=== PATIENT | female | born 1965 | race African-American/Black ===

== ENCOUNTER 2024-03-25 15:21 | Inpatient (IN) | payer MEDICARE, MEDICAID ==
[~2024-03-25] VITALS: Ht 167.6 cm; Wt 78.5 kg
[2024-03-25 16:44] LABS: BASOPHILS % 0.7 % (0.0-2.0); EOSINOPHILS % 2.7 % (0.0-5.0); HEMATOCRIT. 39.1 % (36.0-48.0); HEMOGLOBIN. 12.6 g/dL (12.0-16.0); LYMPHOCYTES % 36.4 % (20.0-50.0); MEAN CORPUSCULAR HEMOGLOBIN 26.2 pg (28.0-32.0); MEAN CORPUSCULAR HGB CONC 32.2 g/dL (31.0-37.0); MEAN CORPUSCULAR VOLUME 81.5 fL (81.0-99.0); MEAN PLATELET VOLUME 7.9 fl (7.4-10.4); MONOCYTES % 8.7 % (2.0-8.0); NEUTROPHILS % 51.5 % (40.0-76.0); PLATELET 262 x1000/uL (130-400); RED CELL DISTRIBUTION WIDTH 14.8 % (11.6-14.6); WHITE BLOOD COUNT 7.6 x1000/uL (4.5-11.0)
[2024-03-25 16:49] LABS: CHLORIDE 107 mEq/L (98-107); POTASSIUM 3.7 mEq/L (3.5-5.1); SODIUM 140 mEq/L (136-145)
[2024-03-25 16:50] LABS: CARBON DIOXIDE 27 mEq/L (21-32)
[2024-03-25] MEDS: MORPHINE SULFATE 4 MG/ML INJ (FOR IV/IM USE) IV ONE (16:53)
[2024-03-25] MEDS: NITROGLYCERIN OINT 1GM/INCH UDPKT TD ONE (16:53)
[2024-03-25] MEDS: METOCLOPRAMIDE HCL 10MG/2ML VIAL IV ONE (16:53)
[2024-03-25 16:55] LABS: CREATININE 1.1 mg/dL (0.6-1.0); GLUCOSE 148 mg/dL (70-105); UREA NITROGEN BLOOD 16 mg/dL (9-23)
[2024-03-25 16:56] LABS: TROPONIN I HIGH SENSITIVITY 5 ng/L (3.0-34)
[2024-03-25 16:57] LABS: INR 0.9
[2024-03-25] MEDS: HYDRALAZINE 20MG/ML VIAL IV ONE (18:58)
[2024-03-25 19:35] LABS: TROPONIN I HIGH SENSITIVITY 5 ng/L (3.0-34)
[2024-03-25 19:54] LABS: CLARITY URINE CLEAR (CLEAR); COLOR URINE YELLOW (YELLOW); GLUCOSE URINE NEGATIVE (NEGATIVE); KETONES URINE NEGATIVE (NEGATIVE); LEUKOCYTE ESTERASE URINE NEGATIVE (NEGATIVE); NITRITE URINE NEGATIVE (NEGATIVE); OCCULT BLOOD URINE NEGATIVE (NEGATIVE); PH URINE 6.5 (4.5-8.0); PROTEIN URINE 3+ (NEGATIVE); SPECIFIC GRAVITY URINE 1.012 (1.005-1.030)
[2024-03-25 20:03] LABS: BACTERIA URINE NONE SEEN; RBC URINE 0-2 /hpf (0-2); SQUAMOUS EPITHELIAL CELL URINE 2+ /lpf (RARE/1+); WBC URINE 0-2 /hpf (0-2)
[2024-03-25] MEDS ORDERED: NALOXONE HCL 0.4MG/ML VIAL IV PRN (21:30)
[2024-03-25 22:19] LABS: TROPONIN I HIGH SENSITIVITY 6 ng/L (3.0-34)
[2024-03-25] MEDS: MORPHINE SULFATE 2 MG/ML INJ (NOT FOR IM USE) IV PRN (22:20)
[2024-03-25] MEDS ORDERED: PRAV40TA58 PO (22:37)
[2024-03-25] MEDS ORDERED: GABA-1180 PO (22:38)
[2024-03-25] MEDS ORDERED: CLONIDINE 0.1MG TABLET PO PRN (23:15)
[2024-03-25] MEDS ORDERED: IPRATROPIUM/ALBUTEROL 0.5-3(2.5)MG/3ML NEB NEB PRN (23:15)
[2024-03-26] MEDS: ZOLPIDEM TARTRATE 5MG TABLET PO PRN (03:10)
[2024-03-26 08:25] LABS: CHLORIDE 108 mEq/L (98-107); SODIUM 140 mEq/L (136-145)
[2024-03-26 08:26] LABS: CALCIUM 9.9 mg/dL (8.7-10.4); CARBON DIOXIDE 24 mEq/L (21-32)
[2024-03-26 08:27] LABS: BASOPHILS % 0.8 % (0.0-2.0); EOSINOPHILS % 2.6 % (0.0-5.0); HEMATOCRIT. 39.2 % (36.0-48.0); HEMOGLOBIN. 12.3 g/dL (12.0-16.0); MEAN CORPUSCULAR HEMOGLOBIN 25.6 pg (28.0-32.0); MEAN CORPUSCULAR HGB CONC 31.3 g/dL (31.0-37.0); MEAN CORPUSCULAR VOLUME 81.8 fL (81.0-99.0); MEAN PLATELET VOLUME 8.7 fl (7.4-10.4); NEUTROPHILS % 56.6 % (40.0-76.0); PLATELET 254 x1000/uL (130-400); RED BLOOD CELL COUNT 4.79 mill/uL (4.2-5.4); RED CELL DISTRIBUTION WIDTH 14.6 % (11.6-14.6); WHITE BLOOD COUNT 7.3 x1000/uL (4.5-11.0)
[2024-03-26 08:31] LABS: CREATININE 0.9 mg/dL (0.6-1.0); GLUCOSE 159 mg/dL (70-105); TRIGLYCERIDE 162 mg/dL (0-150); UREA NITROGEN BLOOD 12 mg/dL (9-23)
[2024-03-26 08:32] LABS: CREATINE KINASE MB FRACTION 3.8 ng/mL (0.5-3.6); LDL CHOLESTEROL 81 mg/dL (5-100)
[2024-03-26 08:33] LABS: CHOLESTEROL 156 mg/dL (<200); HDL CHOLESTEROL 43 mg/dL (>65)
[2024-03-26] MEDS: ONDANSETRON HCL 4MG/2ML INJ IV PRN (08:40)
[2024-03-26 09:16] VITALS: BP 157/84; PULSE 74; RESP 19; TEMP 37.0296
[2024-03-26] MEDS: ACETAMINOPHEN 325MG TABLET PO PRN (09:54)
[2024-03-26] MEDS: ENOXAPARIN 40MG/0.4ML SYR SUBCUT SCH (09:55)
[2024-03-26] MEDS ORDERED: DEXTROSE 50% WATER 50ML SYRINGE IV PRN (10:15)
[2024-03-26] MEDS ORDERED: ERGO400C (10:19)
[2024-03-26] MEDS: BLOOD SUGAR DIAGNOSTIC STRIP TEST SCH (11:50)
[2024-03-26 12:00] VITALS: BP 179/71; PULSE 68; RESP 17; TEMP 36.89184; O2SAT 96
[2024-03-26] MEDS: LOSARTAN 25 MG TABLET PO SCH (12:48)
[2024-03-26] MEDS: BUPROPION HCL 150MG SR TABLET PO SCH (12:48)
[2024-03-26] MEDS: INSULIN LISPRO 100 UNITS/ML SUBCUT SCH (12:53)
[2024-03-26 16:00] VITALS: BP 184/80; PULSE 77; RESP 27; TEMP 36.89184; O2SAT 100
[2024-03-26] MEDS: NEOMYCIN-POLYMYXIN-HYDROCORTISONE 1% OTIC SUSP 10ML EACH EAR SCH (17:41)
[2024-03-26] MEDS ORDERED: NEOMYCIN-POLYMYXIN B-HYDROCORTISONE 1% OTIC SOLN 10ML EACH EAR SCH (18:00)
[2024-03-26] MEDS: METOCLOPRAMIDE HCL 10MG/2ML VIAL IV PRN (19:05)
[2024-03-26 20:00] VITALS: BP 173/66; PULSE 66; RESP 20; TEMP 37.05852; O2SAT 100
[2024-03-26] MEDS: MELATONIN 3MG TABLET PO SCH (21:10)
[2024-03-26] MEDS: ATORVASTATIN CALCIUM 20MG TABLET PO SCH (21:10)
[2024-03-26 23:01] LABS: CREATINE KINASE MB FRACTION 2.5 ng/mL (0.5-3.6)
[2024-03-27] VITALS (7 sets, daily range): BP systolic 141–179; BP diastolic 71–85; PULSE 67–81; RESP 13–20; TEMP 36.44736–37.16964; O2SAT 96–100
[2024-03-27 03:35] LABS: *AMPHETAMINES SCREEN URINE NEGATIVE (NEGATIVE); *BARBITURATES SCREEN URINE NEGATIVE (NEGATIVE); *BENZODIAZEPINES SCREEN URINE NEGATIVE (NEGATIVE); *COCAINE SCREEN URINE NEGATIVE (NEGATIVE); METHADONE URINE SCREEN NEGATIVE (NEGATIVE); OPIATES URINE SCREEN PRESUMPTIVE POSITIVE (NEGATIVE); PHENCYCLIDINE URINE SCREEN NEGATIVE (NEGATIVE)
[2024-03-27 03:36] LABS: CANNABINOID URINE SCREEN PRESUMPTIVE POSITIVE (NEGATIVE); ECSTASY MDMA SCREEN URINE CONF.TEST INDICATED (NEGATIVE)
[2024-03-27] MEDS: LOSARTAN 25 MG TABLET PO NR (14:02)
[2024-03-27] MEDS: AMLODIPINE 5MG TABLET PO SCH (16:55)
[2024-03-28] VITALS: BP 131/62; PULSE 67; RESP 20; TEMP 37.05852; O2SAT 92
[2024-03-28 04:00] VITALS: BP 128/67; PULSE 71; RESP 19; TEMP 37.05852; O2SAT 95
[2024-03-28 08:00] VITALS: BP 150/71; PULSE 80; RESP 20; TEMP 37.00296; O2SAT 98
[2024-03-28] MEDS: LOSARTAN 50 MG TABLET PO SCH (09:12)
[2024-03-28 12:00] VITALS: BP 132/51; PULSE 81; RESP 17; TEMP 36.78072; O2SAT 98
[2024-03-28] MEDS ORDERED: ATOR20TA PO (16:00)
[2024-03-28] MEDS ORDERED: BUPR-114 PO (16:00)
[2024-03-28] MEDS ORDERED: LOSA50TA41 PO (16:00)
[2024-03-28] MEDS ORDERED: AMLO5TAB88 PO (16:00)
[2024-03-28 16:27] VITALS: BP 149/80; PULSE 78; TEMP 98; O2SAT 98
== END 2024-03-28 18:55 | disposition home or self-care (01) | DRG 305 ==
LOC: ER 15:21 → 5WST 20:04 → 3WST 03-26 08:54
PROVIDERS: ADMIT Internal Medicine; ATTEND Internal Medicine
DX: I16.0 Hypertensive urgency (principal); I24.9 Acute ischemic heart disease, unspecified; E11.9 Type 2 diabetes mellitus without complications; I10 Essential (primary) hypertension; F32.9 Major depressive disorder, single episode, unspecified; Z63.4 Disappearance and death of family member
CPT/HCPCS: 36415; 71045; 74018; 80048; 80061; 80305; 81003; 82550; 82553; 82962; 83036; 83880; 84484; 85025; 93005; 99291; J0360; J1650; J1815; J2270; J2405; J2765